=== PATIENT | male | born 1960 | race African-American/Black ===

== ENCOUNTER 2018-09-14 09:24 | Inpatient (IN) | payer BC ==
[2018-09-13 16:19] VITALS: BMI 30.0
[2018-09-14] VITALS (23 sets, daily range): BP systolic 101–136; BP diastolic 68–85; PULSE 52–80; RESP 14–31; Ht 177.8 cm; Wt 98.1 kg
[~2018-09-14] VITALS: Ht 177.8 cm; Wt 98.1 kg
[~2018-09-14 09:24] MED LIST: AMLO-147 PO; ASPI-817 PO; HYDR-3980 PO; [UNRECOGNIZED DRUG - CODE] TP; [UNRECOGNIZED DRUG - REMARK] XX SCH
[2018-09-14] MEDS ORDERED: VANCOMYCIN 1 GM (PMX) 250 ML IVPB ONE (11:00)
--- NOTE | 2018-09-14 11:10 | HPN ---
Date/Time of Note Date/Time of Note DATE: 09/14/18 TIME: 11:10 Interval H&P Admission Note Pt. seen H&P reviewed: No system changes MIK OSORIO MD Sep 14, 2018 11:10
--- NOTE | 2018-09-14 11:25 | PREAC ---
Date/Time of Note Date/Time of Note DATE: 09/14/18 TIME: 11:24 Anesthesia Eval and Record Evaluation Time Pre-Procedure Interview DATE: 09/14/18 TIME: 11:24 Age 58 Sex male NPO: 8 hrs Preoperative diagnosis lumbar ddd Planned procedure L3-5 laminectomy Past Medical History Past Medical History: Includes Cardio: HTN GI: Obesity Surgery & Anesthesia Issues No known issue Meds Anticoagulation: No Beta Naima within 24 hr: No Reason Beta Naima not given: Pt. not on B-Naima Reported Medications Aspirin* (Aspirin* EC) 81 Mg Tablet.dr, 81 MG PO DAILY, TAB 09/13/18 Hydrocodone/Acetaminophen ([place] 10-325 Tablet) 1 Each Tablet, 1 EACH PO BID, TAB 09/13/18 Amlodipine Besylate* (Amlodipine Besylate*) 10 Mg Tablet, 10 MG PO DAILY, #30 TAB 09/13/18 Current Medications Miscellaneous Information (*Order Clarification Bulletin) MEDICATION REQUIRES CLARIFICATI... Q8H XX ; Start 09/14/18 at 06:00 Vancomycin HCl 250 ml @ 125 mls/hr ONCE ONCE IVPB Last administered on 09/14/18at 11:06; Admin Dose 125 MLS/HR; Start 09/14/18 at 11:00; Stop 09/14/18 at 12:59 Meds reviewed: Yes Allergies Coded Allergies: peanut (Verified Allergy, Severe, 09/14/18) Fish Containing Products (Verified Allergy, Unknown, THROAT SWELLS, 09/13/18) Penicillins (Verified Allergy, Unknown, RASH, 09/13/18) Allergies Reviewed: Yes Labs/Studies Labs Reviewed: Reviewed by anesthesiologist Blood Bank Test 09/14/18 10:50 Blood Type O POSITIVE test: N/A Studies: ECG Pre-procedure Exam Last vitals Vital Signs Date Temp Pulse Resp B/P (MAP) Pulse Ox O2 O2 Flow FiO2 Time Delivery Rate 09/14/18 97.0 53 16 111/78 100 Room Air 10:32 (89) Airway: Adequate mouth opening, Adequate thyromental dist Mallampati: Mallampati II Teeth: Normal Lung: Normal Heart: Normal ASA Physical Status ASA physical status: 2 Emergency: None Planned Anesthetic General/MAC: ETT Pre-operative Attestations Prior to commencing anesthesia and surgery, the patient was re-evaluated, there was verification of: *The patient's identity *The results of appropriate recent lab work and preoperative vital signs *The above evaluation not changing prior to induction *Anesthetic plan, risk benefits, alternative and complications discussed with patient/family; questions answered; patient/family understands, accepts and wis hes to proceed. MOLLY SAENZ Sep 14, 2018 11:25
[2018-09-14] MEDS ORDERED: GELATIN SIZE 100 SPONGE ONE (11:28)
[2018-09-14] MEDS ORDERED: BUPIVACAINE 0.5%/EPI (SDV) 30 ML INJ ONE (11:29)
[2018-09-14] MEDS ORDERED: BUPIVACAINE 0.25% (MPF) 30 ML INJ ONE (11:29)
[2018-09-14] MEDS ORDERED: CA CHLORIDE (GM) 10% 10 ML INJ ONE (11:29)
[2018-09-14] MEDS ORDERED: THROMBIN 5000 UNIT (RECOTHROM) VIAL ONE (11:29)
[2018-09-14] MEDS ORDERED: PROCHLORPERAZINE 10 MG INJ IV PRN (11:30)
[2018-09-14] MEDS ORDERED: BISACODYL 10 MG SUPP PR PRN (11:30)
[2018-09-14] MEDS ORDERED: ACETAMINOPHEN 325 MG TAB PO PRN (11:30)
[2018-09-14] MEDS ORDERED: NALOXONE (0.4 MG/ML) INJ IV PRN (11:30)
[2018-09-14] MEDS ORDERED: CEPASTAT LOZENGE MT PRN (11:30)
[2018-09-14] MEDS ORDERED: METOCLOPRAMIDE 10 MG INJ IV PRN (11:30)
[2018-09-14] MEDS ORDERED: DIPHENHYDRAMINE 50 MG INJ IV PRN ×2 (11:30)
[2018-09-14] MEDS ORDERED: PROCHLORPERAZINE 10 MG TAB PO PRN (11:30)
[2018-09-14] MEDS ORDERED: ALBUTEROL 0.083% (NEB) 2.5 MG/3 ML AMP HHN PRN (11:30)
[2018-09-14] MEDS ORDERED: MAGNESIUM HYDROXIDE 30ML CUP PO PRN (11:30)
[2018-09-14] MEDS ORDERED: MEPERIDINE 25 MG INJ IV PRN (11:30)
[2018-09-14] MEDS ORDERED: hydrALAzine 20 MG INJ IV PRN (11:30)
[2018-09-14] MEDS ORDERED: FENTAnyl 50 MCG/ML VIAL IV PRN ×3 (11:30)
[2018-09-14] MEDS ORDERED: LABETALOL HCL 20MG INJ IV PRN (11:30)
[2018-09-14] MEDS ORDERED: HYDROmorphONE 1 MG/5 ML IV SYRINGE IV PRN ×3 (11:30)
[2018-09-14] MEDS ORDERED: ONDANSETRON 4 MG INJ IV PRN ×2 (11:30)
[2018-09-14] MEDS ORDERED: HEPARIN 1000 UNITS/ML 10 ML INJ ONE (11:33)
[2018-09-14] MEDS ORDERED: FENTAnyl 50 MCG/ML VIAL ONE ×2 (11:47→12:30)
[2018-09-14] MEDS ORDERED: PROPOFOL 20 ML ONE (12:16)
[2018-09-14] MEDS ORDERED: LIDOCAINE 100 MG SYRINGE ONE (12:16)
[2018-09-14] MEDS ORDERED: ROCURONIUM 50 MG INJ ONE (12:16)
[2018-09-14] MEDS ORDERED: SUCCINYLCHOLINE CHLORIDE 100 MG/5 ML SYG IV ONE (12:16)
[2018-09-14] MEDS ORDERED: LABETALOL HCL 20MG INJ ONE (12:16)
[2018-09-14] MEDS ORDERED: POLYMYXIN/BACITRACIN 1L IRRIG IRR ONE (12:39)
[2018-09-14] MEDS ORDERED: SUGAMMADEX SODIUM 200 MG/2 ML VIAL IV ONE (13:57)
--- NOTE | 2018-09-14 14:04 | SIPON ---
Date/Time of Note Date/Time of Note DATE: 09/14/18 TIME: 13:56 [id number] conf # Operative Report Preoperative Diagnosis L3-5 stenosis Postoperative Diagnosis same Operation/Procedure Performed L3-5 laminectomy Surgeon see signature line printing bindery assistant Angela Car NP Anesthesia: general Estimated blood loss: 50 - 100 ml's Transfusion Required none Specimen L3-4 facet synovial cyst Grafts/Implants [place], PRP Complications none MIK OSORIO MD Sep 14, 2018 14:04
--- NOTE | 2018-09-14 16:26 | CONS ---
Assessment/Plan Assessment/Plan Hospital Course (Demo Recall) Patient is a -Welsh male with a past medical history significant for hypertension and lumbar stenosis who presents to [facility] for elective lumbar laminectomy. Patient doing well status post surgery, currently has absolutely no complaints except for some surgical site pain, no numbness or tingling in any extremity, no nausea vomiting chest pain shortness of breath or neck pain. Objective Physical exam General: Patient is laying in bed and answers questions appropriately Mentation: Patient is alert and oriented 4, Head: Normocephalic atraumatic Eyes: EOMI, pupils reactive to light Neck: Supple, nontender, midline Respiratory: Clear to auscultation bilaterally Cardiovascular: regular rate, no obvious murmurs Gastrointestinal: non-tender to palpation, bowel sounds heard. Neurological: Moves all extremities spontaneously Skin: Surgical site clean, dry, intact Assessment and plan Lumbar laminectomy, L3-L5 -Elective procedure for history of lumbar stenosis -Orthopedic surgeon to manage Hypertension -Continue amlodipine -Hold off on aspirin until okay with surgeon Disposition -Continue with pain management, patient doing very well and ambulating already. Follow-up tomorrow labs. Consultation Date/Type/Reason Admit Date/Time Sep 14, 2018 at 09:24 Date/Time of Note DATE: 09/14/18 TIME: 16:26 Past Medical History Home Meds Reported Medications Aspirin* (Aspirin* EC) 81 Mg Tablet.dr, 81 MG PO DAILY, TAB 09/13/18 Hydrocodone/Acetaminophen ([place] 10-325 Tablet) 1 Each Tablet, 1 EACH PO BID, TAB 09/13/18 Amlodipine Besylate* (Amlodipine Besylate*) 10 Mg Tablet, 10 MG PO DAILY, #30 TAB 09/13/18 Medications Current Medications Hydromorphone HCl (Dilaudid) 0.2 mg PACU PRN IV MILD PAIN 1-3; Start 09/14/18 at 11:30 Hydromorphone HCl (Dilaudid) 0.4 mg PACU PRN IV MOD PAIN 4-6; Start 09/14/18 at 11:30; Stop 09/14/18 at 18:00 Hydromorphone HCl (Dilaudid) 0.6 mg PACU PRN IV SEVERE PAIN 7-10; Start 09/14/18 at 11:30; Stop 09/14/18 at 18:00 Fentanyl (Sublimaze) 25 mcg PACU ORDER PRN IV MILD PAIN 1-3; Start 09/14/18 at 11:30; Stop 09/14/18 at 18:00 Fentanyl (Sublimaze) 50 mcg PACU ORDER PRN IV MOD PAIN 4-6; Start 09/14/18 at 11:30; Stop 09/14/18 at 18:00 Fentanyl (Sublimaze) 75 mcg PACU ORDER PRN IV SEVERE PAIN 7-10; Start 09/14/18 at 11:30; Stop 09/14/18 at 18:00 Ondansetron HCl (Zofran Inj) 4 mg PACU ORDER PRN IV NAUSEA/VOMITING; Start 09/14/18 at 11:30; Stop 09/14/18 at 18:00 Metoclopramide HCl (Reglan) 10 mg PACU ORDER PRN IV NAUSEA/VOMITING; Start 09/14/18 at 11:30; Stop 09/14/18 at 18:00 Labetalol HCl (Labetalol) 5 mg PACU ORDER PRN IV HIGH BLOOD PRESSURE; Start 09/14/18 at 11:30; Stop 09/14/18 at 18:00 Hydralazine HCl (Apresoline) 5 mg PACU ORDER PRN IV HIGH BLOOD PRESSURE; Start 09/14/18 at 11:30; Stop 09/14/18 at 18:00 Albuterol (Proventil 0.083% (Neb)) 2.5 mg PACU ORDER PRN HHN .WHEEZING; Start 09/14/18 at 11:30; Stop 09/14/18 at 18:00 Meperidine HCl (Demerol) 25 mg PACU ORDER PRN IV .RIGORS; Start 09/14/18 at 11:30; Stop 09/14/18 at 18:00 Diphenhydramine HCl (Benadryl) 25 mg PACU ORDER PRN IV .PRURITUS; Start 09/14/18 at 11:30; Stop 09/14/18 at 18:00 Potassium Chloride/Dextrose/ Sod Cl 1,000 ml @ 100 mls/hr Q10H IV ; Start 09/14/18 at 11:29 Acetaminophen/ Hydrocodone Bitart ([place] (5/325)) 1 tab Q4H PRN PO .PAIN 1-5; Start 09/14/18 at 11:30 Acetaminophen/ Hydrocodone Bitart ([place] (5/325)) 2 tab Q4H PRN PO .PAIN 6-10; Start 09/14/18 at 11:30 Hydromorphone HCl (Dilaudid) 0.5 mg Q4 PRN IV .BREAKTHROUGH PAIN; Start 09/14/18 at 11:30 Vancomycin HCl 250 ml @ 125 mls/hr Q12H IVPB ; Start 09/14/18 at 23:00; Stop 09/15/18 at 12:59 Ondansetron HCl (Zofran Inj) 4 mg Q6H PRN IV NAUSEA/VOMITING; Start 09/14/18 at 11:30 Prochlorperazine (Compazine) 10 mg Q6H PRN PO NAUSEA/VOMITING; Start 09/14/18 at 11:30 Prochlorperazine (Compazine Inj) 10 mg Q6H PRN IV NASUEA/VOMITING; Start 09/14/18 at 11:30 Bisacodyl (Dulcolax Supp) 10 mg DAILY PRN [place] .CONSTIPATION; Start 09/14/18 at 11:30 Docusate Sodium (Colace) 100 mg BID PO ; Start 09/14/18 at 21:00 Pantoprazole (Protonix Tab) 40 mg DAILY@06 PO ; Start 09/15/18 at 06:00 Magnesium Hydroxide (Milk Of Mag) 30 ml HS PRN PO .CONSTIPATION/DYSPEPSIA; Start 09/14/18 at 11:30 Acetaminophen (Tylenol Tab) 650 mg Q4H PRN PO HO[place] OR TEMP GREATER THAN 101.3F; Start 09/14/18 at 11:30 Cyclobenzaprine HCl (Flexeril) 10 mg TID PRN PO .MUSCLE SPASMS; Start 09/14/18 at 11:30 Phenol (Cepastat Lozenge) 1 lozenge PRN PRN [place] .SORE THROAT; Start 09/14/18 at 11:30 Diphenhydramine HCl (Benadryl) 25 mg Q6H PRN PO .ITCHING; Start 09/14/18 at 11:30 Diphenhydramine HCl (Benadryl) 25 mg Q6H PRN IV .ITCHING; Start 09/14/18 at 11:30 Naloxone HCl (Narcan) 0.2 mg Q2M PRN IV .RR 8 BREATHS/MIN OR LESS; Start 09/14/18 at 11:30 Amlodipine Besylate (Norvasc) 10 mg DAILY PO ; Start 09/15/18 at 09:00 Aspirin (Halfprin) 81 mg DAILY PO ; Start 09/15/18 at 09:00 Allergies: Coded Allergies: peanut (Verified Allergy, Severe, 09/14/18) Fish Containing Products (Verified Allergy, Unknown, THROAT SWELLS, 09/13/18) Penicillins (Verified Allergy, Unknown, RASH, 09/13/18) Social History Smoking Status: Current every day smoker Exam/Review of Systems Exam Vitals Vital Signs Date Temp Pulse Resp B/P (MAP) Pulse Ox O2 O2 Flow FiO2 Time Delivery Rate 09/14/18 52 19 130/80 98 Room Air 15:58 (97) 09/14/18 8.0 14:16 09/14/18 97.9 14:07 Medications Medication Current Medications Hydromorphone HCl (Dilaudid) 0.2 mg PACU PRN IV MILD PAIN 1-3; Start 09/14/18 at 11:30 Hydromorphone HCl (Dilaudid) 0.4 mg PACU PRN IV MOD PAIN 4-6; Start 09/14/18 at 11:30; Stop 09/14/18 at 18:00 Hydromorphone HCl (Dilaudid) 0.6 mg PACU PRN IV SEVERE PAIN 7-10; Start 09/14/18 at 11:30; Stop 09/14/18 at 18:00 Fentanyl (Sublimaze) 25 mcg PACU ORDER PRN IV MILD PAIN 1-3; Start 09/14/18 at 11:30; Stop 09/14/18 at 18:00 Fentanyl (Sublimaze) 50 mcg PACU ORDER PRN IV MOD PAIN 4-6; Start 09/14/18 at 11:30; Stop 09/14/18 at 18:00 Fentanyl (Sublimaze) 75 mcg PACU ORDER PRN IV SEVERE PAIN 7-10; Start 09/14/18 at 11:30; Stop 09/14/18 at 18:00 Ondansetron HCl (Zofran Inj) 4 mg PACU ORDER PRN IV NAUSEA/VOMITING; Start 09/14/18 at 11:30; Stop 09/14/18 at 18:00 Metoclopramide HCl (Reglan) 10 mg PACU ORDER PRN IV NAUSEA/VOMITING; Start 09/14/18 at 11:30; Stop 09/14/18 at 18:00 Labetalol HCl (Labetalol) 5 mg PACU ORDER PRN IV HIGH BLOOD PRESSURE; Start 09/14/18 at 11:30; Stop 09/14/18 at 18:00 Hydralazine HCl (Apresoline) 5 mg PACU ORDER PRN IV HIGH BLOOD PRESSURE; Start 09/14/18 at 11:30; Stop 09/14/18 at 18:00 Albuterol (Proventil 0.083% (Neb)) 2.5 mg PACU ORDER PRN HHN .WHEEZING; Start 09/14/18 at 11:30; Stop 09/14/18 at 18:00 Meperidine HCl (Demerol) 25 mg PACU ORDER PRN IV .RIGORS; Start 09/14/18 at 11:30; Stop 09/14/18 at 18:00 Diphenhydramine HCl (Benadryl) 25 mg PACU ORDER PRN IV .PRURITUS; Start 09/14/18 at 11:30; Stop 09/14/18 at 18:00 Potassium Chloride/Dextrose/ Sod Cl 1,000 ml @ 100 mls/hr Q10H IV ; Start 09/14/18 at 11:29 Acetaminophen/ Hydrocodone Bitart ([place] (5/325)) 1 tab Q4H PRN PO .PAIN 1-5; Start 09/14/18 at 11:30 Acetaminophen/ Hydrocodone Bitart ([place] (5/325)) 2 tab Q4H PRN PO .PAIN 6-10; Start 09/14/18 at 11:30 Hydromorphone HCl (Dilaudid) 0.5 mg Q4 PRN IV .BREAKTHROUGH PAIN; Start 09/14/18 at 11:30 Vancomycin HCl 250 ml @ 125 mls/hr Q12H IVPB ; Start 09/14/18 at 23:00; Stop 09/15/18 at 12:59 Ondansetron HCl (Zofran Inj) 4 mg Q6H PRN IV NAUSEA/VOMITING; Start 09/14/18 at 11:30 Prochlorperazine (Compazine) 10 mg Q6H PRN PO NAUSEA/VOMITING; Start 09/14/18 at 11:30 Prochlorperazine (Compazine Inj) 10 mg Q6H PRN IV NASUEA/VOMITING; Start 09/14/18 at 11:30 Bisacodyl (Dulcolax Supp) 10 mg DAILY PRN MA .CONSTIPATION; Start 09/14/18 at 11:30 Docusate Sodium (Colace) 100 mg BID PO ; Start 09/14/18 at 21:00 Pantoprazole (Protonix Tab) 40 mg DAILY@06 PO ; Start 09/15/18 at 06:00 Magnesium Hydroxide (Milk Of Mag) 30 ml HS PRN PO .CONSTIPATION/DYSPEPSIA; Start 09/14/18 at 11:30 Acetaminophen (Tylenol Tab) 650 mg Q4H PRN PO [place] OR TEMP GREATER THAN 101.3F; Start 09/14/18 at 11:30 Cyclobenzaprine HCl (Flexeril) 10 mg TID PRN PO .MUSCLE SPASMS; Start 09/14/18 at 11:30 Phenol (Cepastat Lozenge) 1 lozenge PRN PRN [place] .SORE THROAT; Start 09/14/18 at 11:30 Diphenhydramine HCl (Benadryl) 25 mg Q6H PRN PO .ITCHING; Start 09/14/18 at 11:30 Diphenhydramine HCl (Benadryl) 25 mg Q6H PRN IV .ITCHING; Start 09/14/18 at 11:30 Naloxone HCl (Narcan) 0.2 mg Q2M PRN IV .RR 8 BREATHS/MIN OR LESS; Start 09/14/18 at 11:30 Amlodipine Besylate (Norvasc) 10 mg DAILY PO ; Start 09/15/18 at 09:00 Aspirin (Halfprin) 81 mg DAILY PO ; Start 09/15/18 at 09:00 DORINDA FORMAN Sep 14, 2018 16:26
[2018-09-14] MEDS: D5W-0.45 NACL + KCL 20 MEQ 1,000 ML IV SCH (16:34)
[2018-09-14] MEDS: HYDROCODONE/APAP (5/325) TAB PO PRN ×3 (17:06→21:29)
--- NOTE | 2018-09-14 19:01 | OPR ---
DATE OF OPERATION: 09/14/2018 PREOPERATIVE DIAGNOSES: 1. L3-L4 and L4-L5 central stenosis. 2. Neurogenic claudication. 3. Low back pain. 4. Bilateral lower extremity pain and weakness. POSTOPERATIVE DIAGNOSES: 1. L3-L4 and L4-L5 central stenosis. 2. Neurogenic claudication. 3. Low back pain. 4. Bilateral lower extremity pain and weakness. OPERATION: 1. L3-L4 central decompressive laminectomy with removal of spinous process of L3. 2. Central decompressive laminectomy of L4-L5 with removal of spinous process of L4. 3. At L3-L4, decompression of exiting L3 and traversing L4 nerve root. 4. At L4-L5, decompression of exiting L4 and traversing L5 nerve root. 5. Use of intraoperative neuromonitoring with somatosensory evoked potentials, motor-evoked potentials, and electromyograms during the entire surgical procedure for approximately 3 hours. 6. Use of intraoperative microscope for microsurgical technique and microdissection. 7. Use of intraoperative fluoroscopy for localization. 8. Placement of epidural catheter for injection of 4 mL of 0.25% Marcaine and 100 mcg fentanyl and removal of the catheter. 9. Cosmetic wound closure of 5 cm incision. 10. L3-L4 excision of facet synovial cyst. SURGEON: London Osorio MD GLASS ETCHER: Angela Car NP ANESTHESIA: General. ANESTHESIOLOGIST: John Olvera MD ESTIMATED BLOOD LOSS: 100 mL. TRANSFUSIONS: None. SPECIMENS: L3-L4 facet synovial cyst. GRAFTS AND IMPLANTS: NuShield and platelet-rich plasma. COMPLICATIONS: None. BRIEF PREOPERATIVE HISTORY: The patient is a 58-year-old male who presented with significant symptoms of bilateral lower extremity radiating pain, right greater than left, as well as bilateral foot weakness. The patient was consented for surgery as stated above after risks, benefits, and alternatives were discussed with him at length. The patient understood the plan and consented to surgery as stated above. OPERATION IN DETAIL: The patient was brought to the operating room, placed under anesthesia by Dr. Olvera and given 1 gm of vancomycin. The patient was turned prone on a Jose frame and all bony prominences appropriately padded. Lumbar spine prepped and draped in usual sterile fashion. After a timeout was performed and unanimously agreed upon by all members in the room, we placed 2 spinal needles for localization of our incision level over the L3-L4 and L4-L5 level. Once this was done, we injected subcutaneously with 0.25% Marcaine with epinephrine and made a 5 cm incision focused over the L3-L4 and L4-L5 level. We subperiosteally dissected to the L3 and L4 lamina, verified proper position of our incision line by marking the spinous processes and lateral localizing film. Once this was done, we took the L3 and L4 spinous processes off and then performed partial facetectomies and foraminotomies at the L3-L4 and L4-L5 level, decompressing at the L3-L4 level with the exiting L3, traversing L4 nerve root, and at the L4-L5 level with the exiting L4 and traversing L5 nerve root, removal of ligamentum flavum and decompression of these nerve roots with hemostasis achieved with bipolar cautery and FloSeal. At the conclusion of the procedure, after verification of proper decompression with a Vermillion tool, we placed an epidural catheter in the epidural space, injected with 4 mL of 0.25% Marcaine, 100 mcg fentanyl, removed the catheter, again copiously irrigating and verifying proper hemostasis and then placing a NuShield over the thecal sac after platelet-rich plasma used for hemostasis. At the L3-L4 level on the right side, we encountered a synovial cyst, which was removed and sent to pathology. After concluding the procedure, we started with our closure with 0 Vicryl for the fascia, 2-0 Vicryl subcutaneous skin, and running 4-0 Monocryl. The wound was covered with Dermabond and clean and dry dressing. The patient was awakened and taken to recovery in stable condition, moving bilateral lower extremities. However, the patient did have some noticeable weakness preoperatively to bilateral dorsiflexion of the feet. The patient was counseled preoperatively that this is a finding that may or may not recover based on the timeline of his compression of nerve roots. The patient understood this and we proceeded with the surgical decompression in order to try to alleviate nerve root compression and improve as much as possible. At the conclusion of the procedure, the patient was brought to the recovery room, moving bilateral lower extremities. No complications met during the procedure. All instrument, sponge counts and needles were correct at the conclusion of the procedure. Dictated By: LONDON NASH/GARETH Conf#: [id number] [facility]#: [id number] CC: LONDON OSORIO MD;*EndCC* MTDD
[2018-09-14] MEDS: DOCUSATE SODIUM 100 MG CAP PO SCH (21:31)
[2018-09-14] MEDS: HYDROmorphONE 0.5 MG/0.5 ML SYG IV PRN (22:53)
[2018-09-15] MEDS: VANCOMYCIN 1 GM (PMX) 250 ML IVPB SCH ×2 (00:23→10:36)
[2018-09-15] MEDS: CYCLOBENZAPRINE 10 MG TAB PO PRN ×2 (00:23→17:27)
[2018-09-15] MEDS: DIPHENHYDRAMINE 25 MG CAP PO PRN (00:24)
[2018-09-15] MEDS: HYDROCODONE/APAP (5/325) TAB PO PRN ×5 (01:31→23:22)
[2018-09-15] MEDS ORDERED: HYDROmorphONE 1 MG/ML SYG IV ONE ×2 (02:00→02:17)
[2018-09-15] MEDS: D5W-0.45 NACL + KCL 20 MEQ 1,000 ML IV SCH ×3 (04:23→17:29)
[2018-09-15] MEDS: HYDROmorphONE 0.5 MG/0.5 ML SYG IV PRN ×2 (04:24→21:11)
[2018-09-15] MEDS: PANTOPRAZOLE (EC) 40 MG TAB PO SCH (06:25)
--- NOTE | 2018-09-15 07:30 | PAC ---
Date/Time of Note Date/Time of Note DATE: 09/15/18 TIME: 07:30 Post-Anesthesia Notes Post-Anesthesia Note Last documented vital signs Vital Signs Date Temp Pulse Resp B/P (MAP) Pulse Ox O2 O2 Flow FiO2 Time Delivery Rate 09/14/18 97.4 57 16 112/69 99 Room Air 19:56 (83) 09/14/18 8.0 14:16 Activity: WNL Respiratory function: WNL Cardiovascular function: WNL Mental status: Baseline Pain reasonably controlled: Yes Hydration appropriate: Yes Nausea/Vomiting absent: Yes MOLLY SAENZ Sep 15, 2018 07:30
[2018-09-15 07:58] VITALS: BP 107/64; PULSE 66; RESP 18
[2018-09-15] MEDS ORDERED: ASPIRIN (EC) 81 MG TAB PO SCH (09:00)
[2018-09-15] MEDS: DOCUSATE SODIUM 100 MG CAP PO SCH ×2 (09:00→21:12)
[2018-09-15] MEDS: AMLODIPINE 10 MG TAB PO SCH (09:00)
--- NOTE | 2018-09-15 12:46 | PN ---
Date/Time of Note Date/Time of Note DATE: 09/15/18 TIME: 12:44 Assessment/Plan VTE Prophylaxis Risk score (from Nsg)>0 risk: 7 SCD applied (from Ns): Yes Pharmacological prophylaxis: NA/contraindicated Pharm contraindication: bleeding Lines/Catheters IV Catheter Type (from Nrsg): Saline Lock Urinary Cath still in place: No Assessment/Plan Hospital Course Pain control PT/OT Assessment/Plan s/p L3-5 decompression Cont pain control Pt/OT consider DC today or tomorrow depending on pain control Result Diagram: 09/15/18 0434 09/15/18 0434 Results 24hrs Laboratory Tests Test 09/15/18 04:34 09/15/18 07:16 White Blood Count 8.8 Red Blood Count 3.81 L Hemoglobin 11.4 L Hematocrit 34.9 L Mean Corpuscular Volume 91.6 Mean Corpuscular Hemoglobin 29.9 Mean Corpuscular Hemoglobin Concent 32.7 Red Cell Distribution Width 13.1 Platelet Count 191 Mean Platelet Volume 10.4 Immature Granulocytes % 0.300 Neutrophils % 79.9 H Lymphocytes % 9.9 L Monocytes % 9.2 Eosinophils % 0.5 Basophils % 0.2 Nucleated Red Blood Cells % 0.0 Immature Granulocytes # 0.030 Neutrophils # 7.1 Lymphocytes # 0.9 Monocytes # 0.8 Eosinophils # 0.0 Basophils # 0.0 Nucleated Red Blood Cells # 0.0 Sodium Level 140 Potassium Level 4.0 Chloride Level 107 Carbon Dioxide Level 26 Anion Gap 7 Blood Urea Nitrogen 18 Creatinine 0.90 Est Glomerular Filtrat Rate mL/min > 60 Glucose Level 118 Calcium Level 8.3 L Phosphorus Level 3.0 Magnesium Level 1.7 Lab Scanned Report REFERENCE LAB Exam/Review of Systems Exam Vitals Vital Signs Date Temp Pulse Resp B/P (MAP) Pulse Ox O2 O2 Flow FiO2 Time Delivery Rate 09/15/18 97.8 66 18 107/64 98 Room Air 07:58 (78) 09/14/18 8.0 14:16 Intake and Output 09/14/18 09/14/18 09/15/18 1515:00 23:00 07:00 IntakeIntake Total 1400 ml 610 ml 1150 ml OutputOutput Total 100 ml 400 ml BalanceBalance 1300 ml 610 ml 750 ml Results Results 24hrs Laboratory Tests Test 09/15/18 04:34 09/15/18 07:16 White Blood Count 8.8 Red Blood Count 3.81 L Hemoglobin 11.4 L Hematocrit 34.9 L Mean Corpuscular Volume 91.6 Mean Corpuscular Hemoglobin 29.9 Mean Corpuscular Hemoglobin Concent 32.7 Red Cell Distribution Width 13.1 Platelet Count 191 Mean Platelet Volume 10.4 Immature Granulocytes % 0.300 Neutrophils % 79.9 H Lymphocytes % 9.9 L Monocytes % 9.2 Eosinophils % 0.5 Basophils % 0.2 Nucleated Red Blood Cells % 0.0 Immature Granulocytes # 0.030 Neutrophils # 7.1 Lymphocytes # 0.9 Monocytes # 0.8 Eosinophils # 0.0 Basophils # 0.0 Nucleated Red Blood Cells # 0.0 Sodium Level 140 Potassium Level 4.0 Chloride Level 107 Carbon Dioxide Level 26 Anion Gap 7 Blood Urea Nitrogen 18 Creatinine 0.90 Est Glomerular Filtrat Rate mL/min > 60 Glucose Level 118 Calcium Level 8.3 L Phosphorus Level 3.0 Magnesium Level 1.7 Lab Scanned Report REFERENCE LAB Medications Medication Current Medications Hydromorphone HCl (Dilaudid) 0.2 mg PACU PRN IV MILD PAIN 1-3; Start 09/14/18 at 11:30 Potassium Chloride/Dextrose/ Sod Cl 1,000 ml @ 100 mls/hr Q10H IV Last administered on 09/15/18 04:23; Admin Dose 100 MLS/HR; Start 09/14/18 at 11:29 Acetaminophen/ Hydrocodone Bitart ([place] (5/325)) 1 tab Q4H PRN PO .PAIN 1-5 Last administered on 09/14/18 18:41; Admin Dose 1 TAB; Start 09/14/18 at 11:30 Acetaminophen/ Hydrocodone Bitart ([place] (5/325)) 2 tab Q4H PRN PO .PAIN 6-10 Last administered on 09/15/18 09:04; Admin Dose 2 TAB; Start 09/14/18 at 11:30 Hydromorphone HCl (Dilaudid) 0.5 mg Q4 PRN IV .BREAKTHROUGH PAIN Last admin istered on 09/15/18 04:24; Admin Dose 0.5 MG; Start 09/14/18 at 11:30 Vancomycin HCl 250 ml @ 125 mls/hr Q12H IVPB Last administered on 09/15/18 10:36; Admin Dose 125 MLS/HR; Start 09/14/18 at 23:00; Stop 09/15/18 at 12:59 Ondansetron HCl (Zofran Inj) 4 mg Q6H PRN IV NAUSEA/VOMITING; Start 09/14/18 at 11:30 Prochlorperazine (Compazine) 10 mg Q6H PRN PO NAUSEA/VOMITING; Start 09/14/18 at 11:30 Prochlorperazine (Compazine Inj) 10 mg Q6H PRN IV NASUEA/VOMITING; Start 09/14/18 at 11:30 Bisacodyl (Dulcolax Supp) 10 mg DAILY PRN [place] .CONSTIPATION; Start 09/14/18 at 11:30 Docusate Sodium (Colace) 100 mg BID PO Last administered on 09/14/18at 21:31; Admin Dose 100 MG; Start 09/14/18 at 21:00 Pantoprazole (Protonix Tab) 40 mg DAILY@06 PO Last administered on 09/15/18at 06:25; Admin Dose 40 MG; Start 09/15/18 at 06:00 Magnesium Hydroxide (Milk Of Mag) 30 ml HS PRN PO .CONSTIPATION/DYSPEPSIA; S tart 09/14/18 at 11:30 Acetaminophen (Tylenol Tab) 650 mg Q4H PRN PO [place] OR TEMP GREATER THAN 101.3F; Start 09/14/18 at 11:30 Cyclobenzaprine HCl (Flexeril) 10 mg TID PRN PO .MUSCLE SPASMS Last admini stered on 09/15/18at 00:23; Admin Dose 10 MG; Start 09/14/18 at 11:30 Phenol (Cepastat Lozenge) 1 lozenge PRN PRN [place] .SORE THROAT; Start 09/14/18 at 11:30 Diphenhydramine HCl (Benadryl) 25 mg Q6H PRN PO .ITCHING Last administered on 09/15/18at 00:24; Admin Dose 25 MG; Start 09/14/18 at 11:30 Diphenhydramine HCl (Benadryl) 25 mg Q6H PRN IV .ITCHING; Start 09/14/18 at 11:30 Naloxone HCl (Narcan) 0.2 mg Q2M PRN IV .RR 8 BREATHS/MIN OR LESS; Start 09/14/18 at 11:30 Amlodipine Besylate (Norvasc) 10 mg DAILY PO ; Start 09/15/18 at 09:00 MIK OSORIO MD Sep 15, 2018 12:46
--- NOTE | 2018-09-15 14:01 | PN ---
Date/Time of Note Date/Time of Note DATE: 09/15/18 TIME: 13:59 Objective Vitals Vital Signs Date Temp Pulse Resp B/P (MAP) Pulse Ox O2 O2 Flow FiO2 Time Delivery Rate 09/15/18 97.8 66 18 107/64 98 Room Air 07:58 (78) 09/14/18 8.0 14:16 Intake and Output 09/14/18 09/14/18 09/15/18 1515:00 23:00 07:00 IntakeIntake Total 1400 ml 610 ml 1150 ml OutputOutput Total 100 ml 400 ml BalanceBalance 1300 ml 610 ml 750 ml Results Result Diagram: 09/15/18 0434 09/15/18 0434 Medications Medications Current Medications Potassium Chloride/Dextrose/ Sod Cl 1,000 ml @ 100 mls/hr Q10H IV Last administered on 09/15/18at 04:23; Admin Dose 100 MLS/HR; Start 09/14/18 at 11:29 Acetaminophen/ Hydrocodone Bitart ([place] (5/325)) 1 tab Q4H PRN PO .PAIN 1-5 Last administered on 09/14/18at 18:41; Admin Dose 1 TAB; Start 09/14/18 at 11:30 Acetaminophen/ Hydrocodone Bitart ([place] (5/325)) 2 tab Q4H PRN PO .PAIN 6-10 Last administered on 09/15/18at 09:04; Admin Dose 2 TAB; Start 09/14/18 at 11:30 Hydromorphone HCl (Dilaudid) 0.5 mg Q4 PRN IV .BREAKTHROUGH PAIN Last administered on 09/15/18at 04:24; Admin Dose 0.5 MG; Start 09/14/18 at 11:30 Ondansetron HCl (Zofran Inj) 4 mg Q6H PRN IV NAUSEA/VOMITING; Start 09/14/18 at 11:30 Prochlorperazine (Compazine) 10 mg Q6H PRN PO NAUSEA/VOMITING; Start 09/14/18 at 11:30 Prochlorperazine (Compazine Inj) 10 mg Q6H PRN IV NASUEA/VOMITING; Start 09/14/18 at 11:30 Bisacodyl (Dulcolax Supp) 10 mg DAILY PRN [place] .CONSTIPATION; Start 09/14/18 at 11:30 Docusate Sodium (Colace) 100 mg BID PO Last administered on 09/14/18at 21:31; Admin Dose 100 MG; Start 09/14/18 at 21:00 Pantoprazole (Protonix Tab) 40 mg DAILY@06 PO Last administered on 09/15/18at 06:25; Admin Dose 40 MG; Start 09/15/18 at 06:00 Magnesium Hydroxide (Milk Of Mag) 30 ml HS PRN PO .CONSTIPATION/DYSPEPSIA; Start 09/14/18 at 11:30 Acetaminophen (Tylenol Tab) 650 mg Q4H PRN PO HO[place] OR TEMP GREATER THAN 101.3F; Start 09/14/18 at 11:30 Cyclobenzaprine HCl (Flexeril) 10 mg TID PRN PO .MUSCLE SPASMS Last administered on 09/15/18at 00:23; Admin Dose 10 MG; Start 09/14/18 at 11:30 Phenol (Cepastat Lozenge) 1 lozenge PRN PRN [place] .SORE THROAT; Start 09/14/18 at 11:30 Diphenhydramine HCl (Benadryl) 25 mg Q6H PRN PO .ITCHING Last administered on 09/15/18at 00:24; Admin Dose 25 MG; Start 09/14/18 at 11:30 Diphenhydramine HCl (Benadryl) 25 mg Q6H PRN IV .ITCHING; Start 09/14/18 at 11:30 Naloxone HCl (Narcan) 0.2 mg Q2M PRN IV .RR 8 BREATHS/MIN OR LESS; Start 09/14/18 at 11:30 Amlodipine Besylate (Norvasc) 10 mg DAILY PO ; Start 09/15/18 at 09:00 VTE Prophylaxis Risk score (from Nsg)>0 risk: 7 SCD applied (from Nsg): Yes SCD contraindication: low risk/ambulating Lines/Catheters IV Catheter Type: Escoto in Place: No Assessment/Plan Hospital Course Subjective Patient doing well however needed some IV pain medication overnight Objective Physical exam General: Patient is laying in bed and answers questions appropriately Mentation: Patient is alert and oriented 4, Head: Normocephalic atraumatic Eyes: EOMI, pupils reactive to light Neck: Supple, nontender, midline Respiratory: Clear to auscultation bilaterally Cardiovascular: regular rate, no obvious murmurs Gastrointestinal: non-tender to palpation, bowel sounds heard. Neurological: Moves all extremities spontaneously Skin: Surgical site clean, dry, intact Assessment and plan Lumbar laminectomy, L3-L5 -Elective procedure for history of lumbar stenosis -Orthopedic surgeon to manage Hypertension -Continue amlodipine -Hold off on aspirin until okay with surgeon Adult acne -Patient complaining of mild bumps on face which may represent acne, patient only suffered from 2 weeks, will give a sulfa cleanser on discharge. Disposition -Continue with pain management, patient okay to DC from internal medicine perspective as long as it is okay with orthopedic surgery and patient not needing IV pain medication. DORINDA FORMAN Sep 15, 2018 14:01
[2018-09-15 16:01] VITALS: BP 128/70; PULSE 80; RESP 18
[2018-09-15 20:34] VITALS: BP 118/78; PULSE 74; RESP 20
[2018-09-16] MEDS: HYDROmorphONE 0.5 MG/0.5 ML SYG IV PRN ×5 (01:40→23:00)
[2018-09-16] MEDS: D5W-0.45 NACL + KCL 20 MEQ 1,000 ML IV SCH (03:29)
[2018-09-16 03:36] VITALS: BP 117/72; PULSE 75; RESP 18
[2018-09-16] MEDS: HYDROCODONE/APAP (5/325) TAB PO PRN ×5 (04:11→19:43)
[2018-09-16] MEDS: PANTOPRAZOLE (EC) 40 MG TAB PO SCH (06:36)
[2018-09-16 07:52] VITALS: BP 121/92; PULSE 72; RESP 19
[2018-09-16] MEDS: AMLODIPINE 10 MG TAB PO SCH (09:37)
[2018-09-16] MEDS: DOCUSATE SODIUM 100 MG CAP PO SCH ×2 (09:37→20:22)
--- NOTE | 2018-09-16 12:54 | PDOCDIS ---
Discharge Instructions CONDITION [id number] Patient Condition: [id number] Stable HOME CARE INSTRUCTIONS: [id number] Diet Instructions: [id number] Regular ACTIVITY: [id number] Activity Restrictions: [id number] Slowly Increase Activity Rest between Activity Avoid heavy lifting Do not Drive Avoid Heavy Housework [id number] Bathing Restrictions: [id number] Tub Bath FOLLOW UP/APPOINTMENTS Follow-up Plan 1. Please follow-up with your primary care provider as soon as possible 2. Please follow-up with your orthopedic surgeon as soon as possible at your normal scheduled visit. DORINDA FORMAN Sep 16, 2018 12:54
--- NOTE | 2018-09-16 14:07 | PN ---
Date/Time of Note Date/Time of Note DATE: 09/16/18 TIME: 14:06 Objective Vitals Vital Signs Date Temp Pulse Resp B/P (MAP) Pulse Ox O2 O2 Flow FiO2 Time Delivery Rate 09/16/18 98.1 72 19 121/92 98 07:52 (102) 09/15/18 Room Air 16:01 09/14/18 8.0 14:16 Intake and Output 09/15/18 09/15/18 09/16/18 1515:00 23:00 07:00 IntakeIntake Total 950 ml 500 ml 300 ml BalanceBalance 950 ml 500 ml 300 ml Results Result Diagram: 09/16/18 0758 09/16/18 0758 Medications Medications Current Medications Acetaminophen/ Hydrocodone Bitart ([place] (5/325)) 1 tab Q4H PRN PO .PAIN 1-5 Last administered on 09/14/18at 18:41; Admin Dose 1 TAB; Start 09/14/18 at 11:30 Acetaminophen/ Hydrocodone Bitart ([place] (5/325)) 2 tab Q4H PRN PO .PAIN 6-10 Last administered on 09/16/18at 09:38; Admin Dose 2 TAB; Start 09/14/18 at 11:30 Hydromorphone HCl (Dilaudid) 0.5 mg Q4 PRN IV .BREAKTHROUGH PAIN Last administered on 09/16/18at 14:01; Admin Dose 0.5 MG; Start 09/14/18 at 11:30 Ondansetron HCl (Zofran Inj) 4 mg Q6H PRN IV NAUSEA/VOMITING; Start 09/14/18 at 11:30 Prochlorperazine (Compazine) 10 mg Q6H PRN PO NAUSEA/VOMITING; Start 09/14/18 at 11:30 Prochlorperazine (Compazine Inj) 10 mg Q6H PRN IV NASUEA/VOMITING; Start 09/14/18 at 11:30 Bisacodyl (Dulcolax Supp) 10 mg DAILY PRN [place] .CONSTIPATION; Start 09/14/18 at 11:30 Docusate Sodium (Colace) 100 mg BID PO Last administered on 09/16/18at 09:37; Admin Dose 100 MG; Start 09/14/18 at 21:00 Pantoprazole (Protonix Tab) 40 mg DAILY@06 PO Last administered on 09/16/18at 06:36; Admin Dose 40 MG; Start 09/15/18 at 06:00 Magnesium Hydroxide (Milk Of Mag) 30 ml HS PRN PO .CONSTIPATION/DYSPEPSIA; Start 09/14/18 at 11:30 Acetaminophen (Tylenol Tab) 650 mg Q4H PRN PO [place] OR TEMP GREATER THAN 101.3F; Start 09/14/18 at 11:30 Cyclobenzaprine HCl (Flexeril) 10 mg TID PRN PO .MUSCLE SPASMS Last administered on 09/15/18at 17:27; Admin Dose 10 MG; Start 09/14/18 at 11:30 Phenol (Cepastat Lozenge) 1 lozenge PRN PRN MT .SORE THROAT; Start 09/14/18 at 11:30 Diphenhydramine HCl (Benadryl) 25 mg Q6H PRN PO .ITCHING Last administered on 09/15/18at 00:24; Admin Dose 25 MG; Start 09/14/18 at 11:30 Diphenhydramine HCl (Benadryl) 25 mg Q6H PRN IV .ITCHING; Start 09/14/18 at 11 :30 Naloxone HCl (Narcan) 0.2 mg Q2M PRN IV .RR 8 BREATHS/MIN OR LESS; Start 09/14/18 at 11:30 Amlodipine Besylate (Norvasc) 10 mg DAILY PO Last administered on 09/16/18at 09:37; Admin Dose 10 MG; Start 09/15/18 at 09:00 VTE Prophylaxis Risk score (from Nsg)>0 risk: 8 SCD applied (from Nsg): No SCD contraindication: other Lines/Catheters IV Catheter Type: Escoto in Place: No Assessment/Plan Hospital Course Subjective Patient doing well however still needed some IV pain medication overnight, and sitting he is feeling even worse. Objective Physical exam General: Patient is laying in bed and answers questions appropriately Mentation: Patient is alert and oriented 4, Head: Normocephalic atraumatic Eyes: EOMI, pupils reactive to light Neck: Supple, nontender, midline Respiratory: Clear to auscultation bilaterally Cardiovascular: regular rate, no obvious murmurs Gastrointestinal: non-tender to palpation, bowel sounds heard. Neurological: Moves all extremities spontaneously Skin: Surgical site clean, dry, intact Assessment and plan Lumbar laminectomy, L3-L5 -Elective procedure for history of lumbar stenosis -Orthopedic surgeon to manage Hypertension -Continue amlodipine -Hold off on aspirin until okay with surgeon Adult acne -Patient complaining of mild bumps on face which may represent acne, patient only suffered from 2 weeks, will give a sulfa cleanser on discharge. Disposition -Continue with pain management, patient okay to DC from internal medicine perspective as long as it is okay with orthopedic surgery and patient not ne eding IV pain medication. However patient is still on IV pain medication, if patient's pain does not improve enough to be controlled on oral medications, patient may need acute rehab. DORINDA FORMAN Sep 16, 2018 14:07
[2018-09-16] MEDS ORDERED: DEXAMETHASONE 4 MG/ML 1 ML INJ IV ONE ×2 (14:30→17:30)
--- NOTE | 2018-09-16 15:01 | PN ---
Date/Time of Note Date/Time of Note DATE: 09/16/18 TIME: 15:00 Assessment/Plan VTE Prophylaxis Risk score (from Ns)>0 risk: 8 SCD applied (from Ns): Yes Pharmacological prophylaxis: NA/contraindicated Pharm contraindication: bleeding Lines/Catheters IV Catheter Type (from Nrsg): Urinary Cath still in place: No Assessment/Plan Hospital Course Pain control PT/OT Assessment/Plan post op doing well Plan dc tomorrow pain meds provided Result Diagram: 09/16/18 0758 09/16/18 0758 Results 24hrs Laboratory Tests Test 09/16/18 07:58 White Blood Count 9.3 Red Blood Count 4.07 L Hemoglobin 12.1 L Hematocrit 37.5 L Mean Corpuscular Volume 92.1 Mean Corpuscular Hemoglobin 29.7 Mean Corpuscular Hemoglobin Concent 32.3 Red Cell Distribution Width 13.2 Platelet Count 199 Mean Platelet Volume 10.3 Immature Granulocytes % 0.200 Neutrophils % 61.4 Lymphocytes % 20.8 Monocytes % 14.9 H Eosinophils % 2.5 Basophils % 0.2 Nucleated Red Blood Cells % 0.0 Immature Granulocytes # 0.020 Neutrophils # 5.7 Lymphocytes # 1.9 Monocytes # 1.4 H Eosinophils # 0.2 Basophils # 0.0 Nucleated Red Blood Cells # 0.0 Sodium Level 141 Potassium Level 4.0 Chloride Level 108 Carbon Dioxide Level 27 Anion Gap 6 Blood Urea Nitrogen 14 Creatinine 1.00 Est Glomerular Filtrat Rate mL/min > 60 Glucose Level 98 Calcium Level 9.0 Phosphorus Level 3.4 Magnesium Level 1.9 Exam/Review of Systems Exam Vitals Vital Signs Date Temp Pulse Resp B/P (MAP) Pulse Ox O2 O2 Flow FiO2 Time Delivery Rate 09/16/18 98.1 72 19 121/92 98 07:52 (102) 09/15/18 Room Air 16:01 09/14/18 8.0 14:16 Intake and Output 09/15/18 09/15/18 09/16/18 1515:00 23:00 07:00 IntakeIntake Total 950 ml 500 ml 300 ml BalanceBalance 950 ml 500 ml 300 ml Results Results 24hrs Laboratory Tests Test 09/16/18 07:58 White Blood Count 9.3 Red Blood Count 4.07 L Hemoglobin 12.1 L Hematocrit 37.5 L Mean Corpuscular Volume 92.1 Mean Corpuscular Hemoglobin 29.7 Mean Corpuscular Hemoglobin Concent 32.3 Red Cell Distribution Width 13.2 Platelet Count 199 Mean Platelet Volume 10.3 Immature Granulocytes % 0.200 Neutrophils % 61.4 Lymphocytes % 20.8 Monocytes % 14.9 H Eosinophils % 2.5 Basophils % 0.2 Nucleated Red Blood Cells % 0.0 Immature Granulocytes # 0.020 Neutrophils # 5.7 Lymphocytes # 1.9 Monocytes # 1.4 H Eosinophils # 0.2 Basophils # 0.0 Nucleated Red Blood Cells # 0.0 Sodium Level 141 Potassium Level 4.0 Chloride Level 108 Carbon Dioxide Level 27 Anion Gap 6 Blood Urea Nitrogen 14 Creatinine 1.00 Est Glomerular Filtrat Rate mL/min > 60 Glucose Level 98 Calcium Level 9.0 Phosphorus Level 3.4 Magnesium Level 1.9 Medications Medication Current Medications Acetaminophen/ Hydrocodone Bitart ([place] (5/325)) 1 tab Q4H PRN PO .PAIN 1-5 Last administered on 09/14/18at 18:41; Admin Dose 1 TAB; Start 09/14/18 at 11:30 Acetaminophen/ Hydrocodone Bitart ([place] (5/325)) 2 tab Q4H PRN PO .PAIN 6-10 Last administered on 09/16/18at 09:38; Admin Dose 2 TAB; Start 09/14/18 at 11:30 Ondansetron HCl (Zofran Inj) 4 mg Q6H PRN IV NAUSEA/VOMITING; Start 09/14/18 at 11:30 Prochlorperazine (Compazine) 10 mg Q6H PRN PO NAUSEA/VOMITING; Start 09/14/18 at 11:30 Prochlorperazine (Compazine Inj) 10 mg Q6H PRN IV NASUEA/VOMITING; Start 09/14/18 at 11:30 Bisacodyl (Dulcolax Supp) 10 mg DAILY PRN [place] .CONSTIPATION; Start 09/14/18 at 11:30 Docusate Sodium (Colace) 100 mg BID PO Last administered on 09/16/18at 09:37; Admin Dose 100 MG; Start 09/14/18 at 21:00 Pantoprazole (Protonix Tab) 40 mg DAILY@06 PO Last administered on 09/16/18at 06:36; Admin Dose 40 MG; Start 09/15/18 at 06:00 Magnesium Hydroxide (Milk Of Mag) 30 ml HS PRN PO .CONSTIPATION/DYSPEPSIA; Start 09/14/18 at 11:30 Acetaminophen (Tylenol Tab) 650 mg Q4H PRN PO [place] OR TEMP GREATER THAN 101.3F; Start 09/14/18 at 11:30 Cyclobenzaprine HCl (Flexeril) 10 mg TID PRN PO .MUSCLE SPASMS Last administered on 09/15/18at 17:27; Admin Dose 10 MG; Start 09/14/18 at 11:30 Phenol (Cepastat Lozenge) 1 lozenge PRN PRN [place] .SORE THROAT; Start 09/14/18 at 11:30 Diphenhydramine HCl (Benadryl) 25 mg Q6H PRN PO .ITCHING Last administered on 09/15/18at 00:24; Admin Dose 25 MG; Start 09/14/18 at 11:30 Diphenhydramine HCl (Benadryl) 25 mg Q6H PRN IV .ITCHING; Start 09/14/18 at 11:30 Naloxone HCl (Narcan) 0.2 mg Q2M PRN IV .RR 8 BREATHS/MIN OR LESS; Start 09/14/18 at 11:30 Amlodipine Besylate (Norvasc) 10 mg DAILY PO Last administered on 09/16/18at 09:37; Admin Dose 10 MG; Start 09/15/18 at 09:00 Hydromorphone HCl (Dilaudid) 0.4 mg Q4H PRN IV .BREAKTHROUGH PAIN; Start 09/16/18 at 14:30 MIK OSORIO MD Sep 16, 2018 15:01
[2018-09-16 15:45] VITALS: BP 118/72; PULSE 84; RESP 20
[2018-09-16] MEDS: CYCLOBENZAPRINE 10 MG TAB PO PRN (15:48)
[2018-09-16 19:15] VITALS: BP 126/71; PULSE 79; RESP 20
[2018-09-16] MEDS: DIPHENHYDRAMINE 25 MG CAP PO PRN (23:00)
[2018-09-17 02:00] VITALS: BP 113/57; PULSE 71; RESP 20
[2018-09-17] MEDS: PANTOPRAZOLE (EC) 40 MG TAB PO SCH (06:46)
[2018-09-17] MEDS: HYDROCODONE/APAP (5/325) TAB PO PRN ×2 (06:46→09:02)
--- NOTE | 2018-09-17 07:26 | DS ---
Date/Time of Note Date/Time of Note DATE: 09/17/18 TIME: 07:25 Discharge Summary Admission/Discharge Info Admit Date/Time Sep 14, 2018 at 09:24 Discharge Date/Time 09/17 Discharge Diagnosis s/p L3-5 laminectomy Patient Condition: Good Consults Dr. Forman Procedures L3-5 laminectomy Hx of Present Illness see Hand P Hospital Course Pain control PT/OT Home Meds Active Scripts Sulfacetamide Sodium/Sulfur (Sod Sulfacet-Sulfur 10-5% Clsr) 227 Gm Cleanser, 227 GM TP DAILY for 20 Days, #1 BOTTLE Prov:DORINDA FORMAN 09/15/18 Reported Medications Aspirin* (Aspirin* EC) 81 Mg Tablet.dr 81 MG PO DAILY, TAB 09/13/18 Hydrocodone/Acetaminophen ([place] 10-325 Tablet) 1 Each Tablet, 1 EACH PO BID, TAB 09/13/18 Amlodipine Besylate* (Amlodipine Besylate*) 10 Mg Tablet, 10 MG PO DAILY, #30 TAB 09/13/18 Follow-up Plan 1. Please follow-up with your primary care provider as soon as possible 2. Please follow-up with your orthopedic surgeon as soon as possible at your normal scheduled visit. Primary Care Provider Care Physician No Primary Time spent on discharge: Pending Labs Laboratory Tests Test 09/16/18 07:58 White Blood Count 9.3 10^3/ul (4.8-10.8) Red Blood Count 4.07 10^6/ul (4.70-6.10) Hemoglobin 12.1 g/dl (14.0-18.0) Hematocrit 37.5 % (42.0-52.0) Mean Corpuscular Volume 92.1 fl (82.0-101.0) Mean Corpuscular Hemoglobin 29.7 pg (29.0-33.0) Mean Corpuscular Hemoglobin Concent 32.3 g/dl (32.0-37.0) Red Cell Distribution Width 13.2 % (11.5-14.5) Platelet Count 199 10^3/UL (140-415) Mean Platelet Volume 10.3 fl (7.4-10.4) Immature Granulocytes % 0.200 % (0.001-0.429) Neutrophils % 61.4 % (39.0-77.0) Lymphocytes % 20.8 % (15.0-51.0) Monocytes % 14.9 % (0.0-11.0) Eosinophils % 2.5 % (0.0-7.0) Basophils % 0.2 % (0.0-2.0) Nucleated Red Blood Cells % 0.0 /100WBC (0.0-0.0) Immature Granulocytes # 0.020 10^3/ul (0.0-0.031) Neutrophils # 5.7 10^3/ul (1.6-7.5) Lymphocytes # 1.9 10^3/ul (0.8-2.9) Monocytes # 1.4 10^3/ul (0.3-0.9) Eosinophils # 0.2 10^3/ul (0.0-0.5) Basophils # 0.0 10^3/ul (0.0-0.1) Nucleated Red Blood Cells # 0.0 10^3/ul (0.0-0.0) Sodium Level 141 mmol/L (135-144) Potassium Level 4.0 mmol/L (3.5-5.1) Chloride Level 108 mmol/L (97-110) Carbon Dioxide Level 27 mmol/L (21-31) Anion Gap 6 (5-13) Blood Urea Nitrogen 14 mg/dl (7-20) Creatinine 1.00 mg/dl (0.61-1.24) Est Glomerular Filtrat Rate mL/min > 60 mL/min (>60) Glucose Level 98 mg/dl (70-220) Calcium Level 9.0 mg/dl (8.4-10.2) Phosphorus Level 3.4 mg/dl (2.5-4.9) Magnesium Level 1.9 mg/dl (1.7-2.5) MIK OSORIO MD Sep 17, 2018 07:26
[2018-09-17 08:26] VITALS: BP 121/71; PULSE 67; RESP 18
[2018-09-17] MEDS: DOCUSATE SODIUM 100 MG CAP PO SCH (09:03)
[2018-09-17] MEDS: CYCLOBENZAPRINE 10 MG TAB PO PRN (09:03)
[2018-09-17] MEDS: AMLODIPINE 10 MG TAB PO SCH (09:04)
--- NOTE | 2018-09-17 12:23 | PN ---
Date/Time of Note Date/Time of Note DATE: 09/17/18 TIME: 12:21 Objective Vitals Vital Signs Date Temp Pulse Resp B/P (MAP) Pulse Ox O2 O2 Flow FiO2 Time Delivery Rate 09/17/18 97.6 67 18 121/71 95 08:26 (88) 09/17/18 Room Air 02:00 09/14/18 8.0 14:16 Intake and Output 09/16/18 09/16/18 09/17/18 1515:00 23:00 07:00 IntakeIntake Total 1080 ml 200 ml BalanceBalance 1080 ml 200 ml Results Result Diagram: 09/17/18 1051 09/17/18 1051 VTE Prophylaxis Risk score (from [facility] [place] risk: 7 SCD applied (from [facility] [place] Yes Lines/Catheters IV Catheter Type: Escoto in Place: No Assessment/Plan Hospital Course Subjective Patient feeling a lot better than yesterday, ready to go home. Objective Physical exam General: Patient is laying in bed and answers questions appropriately Mentation: Patient is alert and oriented 4, Head: Normocephalic atraumatic Eyes: EOMI, pupils reactive to light Neck: Supple, nontender, midline Respiratory: Clear to auscultation bilaterally Cardiovascular: regular rate, no obvious murmurs Gastrointestinal: non-tender to palpation, bowel sounds heard. Neurological: Moves all extremities spontaneously Skin: Surgical site clean, dry, intact Assessment and plan Lumbar laminectomy, L3-L5 -Elective procedure for history of lumbar stenosis -Orthopedic surgeon to manage Hypertension -Continue amlodipine -Hold off on aspirin until okay with surgeon Adult acne -Patient complaining of mild bumps on face which may represent acne, patient only suffered from 2 weeks, will give a sulfa cleanser on discharge. Leukocytosis -Patient received a dose of dexamethasone yesterday due to his back pain, which is likely the reason for his leukocytosis, no fever, patient will follow up with his primary care provider and surgeon for repeat blood test. Disposition -Patient is to be discharged home today after feeling much better, will follow up with his surgeon within 1 week. Repeat CBC to ensure resolving leukocytosis. In the outpatient setting. DORINDA FORMAN Sep 17, 2018 12:23
== END 2018-09-17 12:00 | disposition home or self-care (01) | DRG 520 ==
LOC: REC 09:24 → MS1 16:09
PROVIDERS: ADMIT Orthopaedic Surgery Orthopaedic Surgery of the Spine; ATTEND Orthopaedic Surgery Orthopaedic Surgery of the Spine
PROC: 0SB00ZZ Excision of Lumbar Vertebral Joint, Open Approach (ICD-10-PCS; 2018-09-14)
PROC: 01NB0ZZ Release Lumbar Nerve, Open Approach (ICD-10-PCS; principal; 2018-09-14 11:30)
DX: M48.062 Spinal stenosis, lumbar region with neurogenic claudication (principal); M71.38 Other bursal cyst, other site; I10 Essential (primary) hypertension; L70.9 Acne, unspecified; E66.9 Obesity, unspecified; Z68.31 Body mass index [BMI] 31.0-31.9, adult
CPT/HCPCS: 72100; 80048; 83735; 84100; 85025; 86850; 86900; 86901; 86999; 88304; 97116; 97161; 97165; 97530; 97535; J1100; J1170; J1644; J2001; J3010; J3370; J3480; V2790